=== PATIENT | male | born 1985 | race Caucasian/White ===

== ENCOUNTER 2022-08-02 11:04 | Emergency (ER) | payer MEDICAID ==
[~2022-08-02] VITALS: Ht 190.5 cm; Wt 64.5 kg
[2022-08-02 11:26] VITALS: BP 98/70
[2022-08-02] MEDS ORDERED: KETOROLAC TROMETH 30 MG/ML 1ML VIAL IM ONE (13:00)
[2022-08-02] MEDS ORDERED: TETANUS-DIPTH-ACEL PERTUSSIS 0.5ML SYR Tdap IM ONE (13:00)
[2022-08-02] MEDS ORDERED: CEPH-510 PO (13:56)
[2022-08-02] MEDS ORDERED: IBUP600T28 PO (13:56)
== END 2022-08-02 14:16 | disposition home or self-care (01) ==
LOC: ER 11:04
DX: S01.111A Laceration without foreign body of right eyelid and periocular area, initial encounter (principal); W18.09XA Striking against other object with subsequent fall, initial encounter; Y93.89 Activity, other specified; Y92.89 Other specified places as the place of occurrence of the external cause; Y99.8 Other external cause status
CPT/HCPCS: 12011; 90471; 90715; 96372; 99284; J1885